=== PATIENT | male | born 1980 | race Caucasian/White ===

== ENCOUNTER 2020-07-07 13:47 | Emergency (ER) | payer MEDICAID, SELFPAY ==
[~2020-07-07] VITALS: Ht 167.6 cm; Wt 113.4 kg
[2020-07-07 13:56] VITALS: Ht 167.6 cm; Wt 113.4 kg
[2020-07-07 15:04] VITALS: BP 133/84
== END 2020-07-07 15:04 | disposition home or self-care (01) ==
LOC: ED 13:47
DX: J02.9 Acute pharyngitis, unspecified (principal); Z20.828 Contact with and (suspected) exposure to other viral communicable diseases
CPT/HCPCS: U0003-CS